=== PATIENT | male | born 2000 | race Two or more races ===

== ENCOUNTER 2022-04-24 12:47 | Emergency (ER) | payer OTHER ==
[~2022-04-24] VITALS: Ht 170.2 cm; Wt 97.5 kg
== END 2022-04-24 16:04 | disposition home or self-care (01) ==
LOC: ER 12:47
DX: U07.1 COVID-19 (principal)

== ENCOUNTER 2022-04-27 08:15 | Outpatient (CLI) | payer OTHER | END 2022-04-27 09:30 | disposition home or self-care (01) | LOC: ASH CLINIC 08:15 | PROVIDERS: ATTEND General Practice | DX: U07.1 COVID-19 (principal) ==

== ENCOUNTER 2022-09-28 01:56 | Outpatient (CLI) | payer OTHER | END 2022-09-28 01:59 | disposition home or self-care (01) | LOC: LAB 01:56 | PROVIDERS: ATTEND Obstetrics & Gynecology | DX: Z20.828 Contact with and (suspected) exposure to other viral communicable diseases (principal); Z20.818 Contact with and (suspected) exposure to other bacterial communicable diseases ==

== ENCOUNTER 2022-10-09 11:31 | Outpatient (CLI) | payer OTHER | END 2022-10-09 11:32 | disposition home or self-care (01) | LOC: LAB 11:31 | PROVIDERS: ATTEND Obstetrics & Gynecology | DX: Z20.818 Contact with and (suspected) exposure to other bacterial communicable diseases (principal); Z20.828 Contact with and (suspected) exposure to other viral communicable diseases ==